=== PATIENT | female | born 1930 | race Caucasian/White ===

== ENCOUNTER → 2016-12-23 | Outpatient (CLI) | payer MEDICARE, OTHER ==
[~2016-12-23] MED LIST: ALAVERT10 MG PO; ALPRAZOLAM PO; ASPIRIN PO; BENICAR PO; CENTRUM SILVER PO; CIPRO PO; CLARITIN10 MG PO; CLEOCIN PO; COMBIVENT U/D3 ML INH; DIOVAN; DIOVAN160 MG PO; FLAX SEED OIL1000 M1; FLAX SEED OIL1000 M1 PO; FLAX SEED OIL1000 MG PO; GLIPIZIDE10 MG PO; GLUCOTROL; GLYBURIDE PO; HCTZ PO; LEVOCETIRIZINE D5 MG PO; LEVOTHYROXINE25 MCG PO; LEXAPRO PO; LIPITOR; LISINOPRIL PO; LOPRESSOR PO; LOVASTATIN20 M2 PO; METFORMIN PO; METOPROLOL TAR25 MG PO; MOTRIN600 MG PO; MULTI-VITAMIN1 TAB PO; NITROFURANTOIN50 M1 PO; OYSTER CALCIUM500 MG PO; PREDNISONE10 MG/DOSE PO; PYRIDIUM PO; SINGULAIR PO; TYLENOL ARTHRITIS; VITAMIN D400 UNI2 PO; XYZAL5 MG PO
--- NOTE | ~2016-12-23 | MY11 ---
[facility] A Service of [facility] RADIOLOGY TEXT RESULTS PATIENT: ORLIN SALTER LOCATION: [facility] : 34 UNIT #: [id number] AGE: [address]: Alcides Meredith MD SEX: F ORDER DR: [id number] [facility] [address] [place], [place] [address] [id number] O MR#: [id number] Acc #: [id number] NAME: ORLIN SALTER : 1930 SEX: F STUDY DATE/TIME: 12/23/2016 9:15 UNIT: [facility] ROOM: STUDY DESCRIPTION: MY Mammogram Screening Dig Cristiano Attending Physician: Alcides Meredith M.D. Referring Physician: Alcides Meredith M.D. Ordering Physician: Alcides Meredith M.D. Primary Care Physician: Alcides Meredith M.D. MEDICAL IMAGING REPORT This report is preliminary unless electronic signature is present EXAM Digital screening mammogram 12/23/2016, [facility] HISTORY 86-year-old woman, no risk elevation. Prior excisional right breast biopsy. Annual screen. COMPARISON Mammograms date to 09/11/2006, with most recent screening comparison 11/16/2015. TECHNIQUE Digital imaging of each breast was completed utilizing screening protocol. Biopsy marker was placed on the right breast. Review includes FDA-approved CAD device. FINDINGS Breast parenchyma is fatty replaced. Benign calcifications in each breast are stable. Intramammary lymph node right breast is stable as well. I see no interval occurring mass. There are no suspicious microcalcifications and no architectural deformity. IMPRESSION Negative mammogram. Annual screening is optional at this age. Patient's over the age of 40 are entered into a reminder system with target due date for the next mammogram. A result letter will be sent to the patient. BIRADS: 1 Negative Dictated by... [facility] A Service [facility] RADIOLOGY TEXT RESULTS PATIENT: ORLIN SALTER LOCATION: [facility] : 34 UNIT #: [id number] AGE: [address]: Alcides Meredith MD SEX: F ORDER DR: Joseph Hui M.D. THIS IS AN ELECTRONICALLY VERIFIED REPORT Joseph Hui M.D. at 12/23/2016 2:17 PM JBB/to TD: 12/23/2016 12:12 JOB #: [id number] MEDICAL IMAGING REPORT Page 1 of 1 COPY
== END | disposition home or self-care (01) ==
LOC: CWCC 08:49
DX: Z12.31 Encounter for screening mammogram for malignant neoplasm of breast (principal); Z98.890 Other specified postprocedural states
CPT/HCPCS: G0202